=== PATIENT | male | born 1965 | race Caucasian/White ===

== ENCOUNTER 2025-07-08 17:39 | Outpatient (REF) | payer SELFPAY ==
[2025-07-08 17:39] LABS: ALT 66 U/L (16-63); AST 46 U/L (15-37); Albumin 4.1 g/dL (3.4-5.0); Alkaline Phosphatase 88 U/L (46-116); Anion Gap 9.5 mmol/L (3-11); BUN 24 mg/dL (7-18); Bilirubin, Total 0.9 mg/dL (0.2-1.0); CO2 28.5 mmol/L (21.0-32.0); Calcium 9.3 mg/dL (8.5-10.1); Calculated LDL 84 mg/dL (<100); Chloride 101 mmol/L (98-107); Cholesterol 148 mg/dL (<200); Estimated GFR 69.23 (mL/min/1.73m2); Glucose 89 mg/dL (74-106); HDL Cholesterol 57 mg/dL (>or=40); Potassium 4.2 mmol/L (3.5-5.1); Sodium 139 mmol/L (136-145); Total Protein 7.3 g/dL (6.4-8.2); Triglyceride 38 mg/dL (<150)
[2025-07-08 23:03] LABS: PSA, Screening 0.8 ng/mL (<=4.5)
== END 2025-07-08 17:40 | disposition home or self-care (01) ==
LOC: NCHCN 17:39
PROVIDERS: PCP Family Medicine; Visit Provider Family Medicine
DX: R03.0 Elevated blood-pressure reading, without diagnosis of hypertension (principal); Z12.5 Encounter for screening for malignant neoplasm of prostate
CPT/HCPCS: 80053; 80061; 84153